=== PATIENT | female | born 1995 | race Hispanic/Latino ===

== ENCOUNTER 2021-11-15 20:17 | Emergency (ER) | payer OTHER, SELFPAY ==
[2021-11-15 20:48] LABS: #Eosinphils 0.2 10x3/uL (0.0-0.5); #Monocytes 0.5 10x3/uL (0.0-1.1); #Neutrophils 6.1 10x3/uL (1.5-8.4); %Basophils 0.3 % (0.0-2.0); %Eosinophils 1.9 % (0.0-6.0); %Lymphocytes 27.7 % (18.0-47.0); %Monocytes 5.3 % (0.0-10.0); %Neutrophils 64.6 % (40.0-75.0); Hemoglobin 14.1 g/dL (12.0-15.5); Mean Corpuscular HGB CONC 34.5 g/dL (32.0-36.0); Mean Corpuscular Hemoglobin 30.1 pg (27.0-33.0); Mean Corpuscular Volume 87.4 fl (81.6-98.3); Mean Platelet Volume 10.9 fl (7.4-10.4); Platelet Count 218 10x3/uL (150-450); Red Blood Cell (RBC) Count 4.68 10x6/uL (3.90-5.03); White Blood Cell (WBC) Count 9.5 10x3/uL (3.5-10.5)
[2021-11-15 21:00] LABS: Bilirubin Neg (Negative); Blood, Urine 50 (Negative); Clarity Clear (Clear); Glucose, Urine (Dipstick) 250 mg/dL (Negative); Ketone, Urine Negative (Negative); Leukocyte 25 (Negative); Nitrite Negative (Negative); Protein, Urine (Dipstick) Negative (Neg-Trace); Specific Gravity, Urine 1.005 (1.002-1.036); Urobilinogen Normal mg/dL (Less than 2); pH, Urine 6.5 (5.0-9.0)
[2021-11-15 21:02] LABS: ALT (SGPT) 13 U/L (8-55); AST (SGOT) 12 U/L (5-34); Albumin 4.3 g/dL (3.5-5.0); Alkaline Phosphatase 78 U/L (40-110); Anion Gap 11 mmol/L (10-20); BUN (Urea Nitrogen) 16 mg/dL (7.0-18.7); Bilirubin, Total 0.3 mg/dL (0.2-1.2); Calc. Creatinine Clearance 0 mL/min (70-130); Calcium 9.4 mg/dL (7.8-10.44); Carbon Dioxide 22 mmol/L (22-29); Chloride 103 mmol/L (98-107); Estimated GFR 103; Globulin 3.7 g/dL (2.4-3.5); Glucose 189 mg/dL (70-105); Potassium 3.8 mmol/L (3.5-5.1); Sodium 132 mmol/L (136-145)
[2021-11-15 21:14] LABS: RBC/HPF 0-3 HPF (0-3); Squamous Epithelial 0-3 HPF (0-3); WBC/HPF 0-3 HPF (0-3)
[2021-11-15 21:15] LABS: Bacteria/HPF None Seen HPF (None Seen)
== END 2021-11-15 23:00 | disposition home or self-care (01) ==
LOC: CSHERS 20:17
DX: O20.0 Threatened abortion (principal); O24.111 Pre-existing type 2 diabetes mellitus, in pregnancy, first trimester; Z3A.01 Less than 8 weeks gestation of pregnancy
CPT/HCPCS: 36415; 76856; 80053; 81003; 81015; 84702; 85025; 86900; 86901; 93976

== ENCOUNTER 2021-12-17 19:24 | Emergency (ER) | payer OTHER ==
[2021-12-17 19:56] LABS: #Eosinphils 0.2 10x3/uL (0.0-0.5); #Monocytes 0.6 10x3/uL (0.0-1.1); #Neutrophils 7.2 10x3/uL (1.5-8.4); %Basophils 0.4 % (0.0-2.0); %Eosinophils 1.7 % (0.0-6.0); %Lymphocytes 26.4 % (18.0-47.0); %Monocytes 5.2 % (0.0-10.0); %Neutrophils 65.9 % (40.0-75.0); Hemoglobin 12.8 g/dL (12.0-15.5); Mean Corpuscular HGB CONC 34.5 g/dL (32.0-36.0); Mean Corpuscular Hemoglobin 29.6 pg (27.0-33.0); Mean Corpuscular Volume 85.9 fl (81.6-98.3); Mean Platelet Volume 10.7 fl (7.4-10.4); Platelet Count 214 10x3/uL (150-450); Red Blood Cell (RBC) Count 4.32 10x6/uL (3.90-5.03); White Blood Cell (WBC) Count 10.9 10x3/uL (3.5-10.5)
== END 2021-12-17 22:21 | disposition home or self-care (01) ==
LOC: CSHERS 19:24
DX: O20.0 Threatened abortion (principal); E11.9 Type 2 diabetes mellitus without complications; Z3A.12 12 weeks gestation of pregnancy; Z79.4 Long term (current) use of insulin
CPT/HCPCS: 36415; 76856; 84702; 85025; 93976

== ENCOUNTER 2022-04-10 18:38 | Day surgery (SDC) | payer OTHER, SELFPAY ==
[2022-04-10 19:41] VITALS: BMI 40.8
[2022-04-10] MEDS ORDERED: hydrALAZINE 20 MG/ML VIAL SLOW IVP PRN (20:13)
== END 2022-04-10 20:26 | disposition home or self-care (01) ==
LOC: CSHLD/OP 18:38
PROVIDERS: ATTEND Obstetrics & Gynecology
DX: O9A.213 Injury, poisoning and certain other consequences of external causes complicating pregnancy, third trimester (principal); O99.213 Obesity complicating pregnancy, third trimester; E66.9 Obesity, unspecified; O24.414 Gestational diabetes mellitus in pregnancy, insulin controlled; R10.9 Unspecified abdominal pain; Z3A.28 28 weeks gestation of pregnancy; W01.0XXA Fall on same level from slipping, tripping and stumbling without subsequent striking against object, initial encounter; Z79.4 Long term (current) use of insulin
CPT/HCPCS: 99283

== ENCOUNTER 2022-05-07 17:15 | Day surgery (SDC) | payer SELFPAY ==
[2022-05-07 18:06] VITALS: BMI 33.8
[2022-05-07] MEDS ORDERED: hydrALAZINE 20 MG/ML VIAL SLOW IVP PRN (18:56)
[2022-05-07] MEDS ORDERED: Lactated Ringer's 1,000 ML IV SCH ×2 (19:15)
[2022-05-07 19:50] LABS: FFN Internal QC Analyzer PASS (PASS); FFN Internal QC Cassette PASS (PASS); Fetal Fibronectin Negative (Negative)
[2022-05-07 20:17] LABS: Bilirubin Neg (Negative); Blood, Urine 25 (Negative); CAUTI Indications for Culture Pregnancy; Clarity Clear (Clear); Glucose, Urine (Dipstick) Normal (Negative); Ketone, Urine Negative (Negative); Leukocyte 100 (Negative); Nitrite Negative (Negative); Protein, Urine (Dipstick) Negative (Neg-Trace); Specific Gravity, Urine 1.015 (1.005-1.030); Urobilinogen Normal mg/dL (Less than 2); pH, Urine 6.5 (5.0-9.0)
[2022-05-07 20:20] LABS: Urine Culture Reflex Yes Yes
[2022-05-07 20:26] LABS: Bacteria/HPF 2+ HPF (None Seen); RBC/HPF 0-3 HPF (0-3); Squamous Epithelial 0-3 HPF (0-3); WBC/HPF 0-3 HPF (0-3)
[2022-05-07] MEDS ORDERED: hydrOXYzine 10 MG TAB PO SCH (20:30)
[2022-05-08 11:53] LABS: Chlamydia by PCR Not Detected (NotDetected); GC by PCR Not Detected (NotDetected)
== END 2022-05-07 21:58 | disposition home or self-care (01) ==
LOC: CSHLD/OP 17:15
PROVIDERS: ATTEND Student in an Organized Health Care Education/Training Program
DX: O47.03 False labor before 37 completed weeks of gestation, third trimester (principal); O24.414 Gestational diabetes mellitus in pregnancy, insulin controlled; Z3A.32 32 weeks gestation of pregnancy
CPT/HCPCS: 81001; 82731; 87086; 87491; 87591; 87661

== ENCOUNTER 2022-05-29 21:45 | Day surgery (SDC) | payer SELFPAY ==
[2022-05-30] MEDS ORDERED: hydrALAZINE 20 MG/ML VIAL SLOW IVP PRN (00:19)
== END 2022-05-30 00:32 | disposition home or self-care (01) ==
LOC: CSHLD/OP 21:45
PROVIDERS: ATTEND Obstetrics & Gynecology
DX: O47.03 False labor before 37 completed weeks of gestation, third trimester (principal); O24.313 Unspecified pre-existing diabetes mellitus in pregnancy, third trimester; E11.9 Type 2 diabetes mellitus without complications; Z79.4 Long term (current) use of insulin; Z3A.35 35 weeks gestation of pregnancy
CPT/HCPCS: 99283

== ENCOUNTER 2022-06-22 14:06 | Inpatient (IN) | payer MEDICAID, SELFPAY ==
[2022-06-22 15:08] VITALS: BMI 49.5
[2022-06-22] MEDS ORDERED: hydrALAZINE 20 MG/ML VIAL SLOW IVP PRN (15:52)
[2022-06-22] MEDS ORDERED: Acetaminophen 500 MG TAB PO PRN (16:32)
[2022-06-22] MEDS ORDERED: Ondansetron PF 4 MG/2 ML Vial IVP PRN (16:32)
[2022-06-22] MEDS ORDERED: Promethazine HCl 25 MG/ML VIAL IM PRN (16:32)
[2022-06-22 16:33] LABS: Creatinine, Urine 101.56 mg/dL (47-110); Protein, Urine Random Quant Less than 10 mg/dL (1-14)
[2022-06-22] MEDS ORDERED: Dextrose 50% Abboject 50 ML SYRINGE SLOW IVP PRN (16:35)
[2022-06-22] MEDS ORDERED: HumaLOG 300 UNITS/3 ML VIAL SC PRN ×2 (16:35)
[2022-06-22] MEDS ORDERED: Dextrose 5% in Water 1,000 ML IV PRN (16:35)
[2022-06-22 19:44] LABS: #Eosinphils 0.1 10x3/uL (0.0-0.5); #Monocytes 0.8 10x3/uL (0.0-1.1); #Neutrophils 7.9 10x3/uL (1.5-8.4); %Basophils 0.3 % (0.0-2.0); %Eosinophils 1.2 % (0.0-6.0); %Lymphocytes 22.5 % (18.0-47.0); %Monocytes 7.1 % (0.0-10.0); %Neutrophils 68.5 % (40.0-75.0); Mean Corpuscular HGB CONC 33.2 g/dL (32.0-36.0); Mean Corpuscular Hemoglobin 28.3 pg (27.0-33.0); Mean Corpuscular Volume 85.1 fl (81.6-98.3); Mean Platelet Volume 11.8 fl (7.4-10.4); Platelet Count 180 10x3/uL (150-450); RBC Distribution Width 16.6 % (11.5-14.5); Red Blood Cell (RBC) Count 3.89 10x6/uL (3.90-5.03); White Blood Cell (WBC) Count 11.5 10x3/uL (3.5-10.5)
[2022-06-22 20:03] LABS: ALT (SGPT) 10 U/L (8-55); AST (SGOT) 10 U/L (5-34); Albumin 3.1 g/dL (3.5-5.0); Alkaline Phosphatase 156 U/L (40-110); Anion Gap 14 mmol/L (10-20); BUN (Urea Nitrogen) 10 mg/dL (7.0-18.7); Bilirubin, Total 0.2 mg/dL (0.2-1.2); Calc. Creatinine Clearance 276 mL/min (70-130); Calcium 8.2 mg/dL (7.8-10.44); Carbon Dioxide 16 mmol/L (22-29); Chloride 109 mmol/L (98-107); Estimated GFR 127; Glucose 91 mg/dL (70-105); Potassium 3.9 mmol/L (3.5-5.1); Protein, Total 6.1 g/dL (6.0-8.3); Sodium 135 mmol/L (136-145)
[2022-06-22 20:22] LABS: Syphilis Antibody Nonreactive (Nonreactive); Syphilis Antibody Index 0.11 S/CO (<1.00 Non-Reactive)
[2022-06-22 20:23] LABS: HBSAg Index 0.13 S/CO (0-0.99); Hep B Surf Ag Non-Reactive S/CO (NonReactive)
[2022-06-22] MEDS ORDERED: Lantus 1000 UNITS/10 ML VIAL SC SCH (21:00)
[2022-06-22 21:47] LABS: SARS-CoV-2 NAA Rapid Test Not Detected (NotDetected)
[2022-06-23] MEDS ORDERED: Bicitra 30 ML UDCUP PO PRN (03:16)
[2022-06-23] MEDS ORDERED: Famotidine/PF 20 mg/2ml Vial SLOW IVP PRN (03:16)
[2022-06-23] MEDS ORDERED: CEFAZOLIN 2 GM in Sodium Chloride 0.9% 100 ML IVPB SCH (03:30)
[2022-06-23] MEDS ORDERED: Phenylephrine 40 MG/NS 250 ML 250 ML ONE (04:08)
[2022-06-23] MEDS ORDERED: Oxytocin 10 UNITS/ML VIAL ONE ×2 (04:08→05:50)
[2022-06-23] MEDS ORDERED: Morphine PF 10 MG/10 ML VIAL ONE (04:08)
[2022-06-23] MEDS ORDERED: ePHEDrine Sulfate 50 MG/10 ML VIAL ONE (04:08)
[2022-06-23] MEDS ORDERED: Ketorolac Tromethamine 30 MG/ML VIAL ONE (04:08)
[2022-06-23] MEDS ORDERED: Ondansetron PF 4 MG/2 ML Vial ONE ×2 (04:08→10:37)
[2022-06-23] MEDS ORDERED: Fentanyl 100 MCG/2 ML VIAL ONE ×2 (04:08→10:11)
[2022-06-23] MEDS ORDERED: Azithromycin 500 MG VIAL ONE (05:32)
[2022-06-23] MEDS ORDERED: Promethazine HCl 25 MG/ML VIAL ONE (05:47)
[2022-06-23] MEDS ORDERED: diphenhydrAMINE 50 MG/ML VIAL IVP PRN ×2 (06:42→17:18)
[2022-06-23] MEDS ORDERED: Ondansetron HCl/PF 4 MG/2 ML Vial IVP PRN (06:42)
[2022-06-23] MEDS ORDERED: L&D-Morphine 4 MG/ML VIAL SLOW IVP PRN (06:42)
[2022-06-23] MEDS ORDERED: Promethazine HCl 25 MG SUPP PR PRN ×2 (06:42→17:18)
[2022-06-23] MEDS ORDERED: Naloxone HCl 0.4 mg/ml Vial IV PRN ×2 (06:42→17:18)
[2022-06-23] MEDS ORDERED: Naloxone HCl 0.4 mg/ml Vial IVP PRN ×4 (06:42→17:18)
[2022-06-23] MEDS ORDERED: Ondansetron PF 4 MG/2 ML Vial IVP PRN ×2 (06:42→17:18)
[2022-06-23] MEDS ORDERED: Fentanyl 100 MCG/2 ML VIAL SLOW IVP PRN (06:42)
[2022-06-23] MEDS ORDERED: Ketorolac Tromethamine 30 MG/ML VIAL IVP PRN (06:42)
[2022-06-23] MEDS ORDERED: Promethazine HCl 25 MG/ML VIAL IM PRN ×2 (06:42→17:18)
[2022-06-23] MEDS ORDERED: Moisturizing Cream (Eucerin) 113 GM JAR TOP PRN ×2 (06:42→17:18)
[2022-06-23] MEDS ORDERED: Meperidine HCl/PF 25 MG/ML VIAL SLOW IVP PRN (06:42)
[2022-06-23] MEDS ORDERED: Ketorolac Tromethamine 30 MG/ML VIAL IVP SCH (06:45)
[2022-06-23] MEDS ORDERED: Communication Order-Pharmacy FS SCH ×2 (06:45→17:30)
[2022-06-23] MEDS ORDERED: Acetaminophen 325 MG TAB PO PRN (08:38)
[2022-06-23] MEDS ORDERED: Bisacodyl 10 MG SUPP PR PRN (08:38)
[2022-06-23] MEDS ORDERED: Lanolin Ointment 7 GM TUBE TOP PRN (08:38)
[2022-06-23] MEDS ORDERED: hydrALAZINE 20 MG/ML VIAL SLOW IVP PRN (08:38)
[2022-06-23] MEDS ORDERED: HYDROcodone/Acetaminophen 5/325 mg Tablet PO PRN (08:38)
[2022-06-23] MEDS ORDERED: Simethicone Chewable 80 MG TAB PO PRN (08:38)
[2022-06-23] MEDS ORDERED: Boostrix 0.5 ML (Tdap) VIAL (>/=7 yrs of age) IM ONE (08:38)
[2022-06-23] MEDS ORDERED: Misoprostol 200 MCG TAB ONE ×3 (09:20→09:27)
[2022-06-23] MEDS ORDERED: Misoprostol 200 MCG TAB PR SCH (09:30)
[2022-06-23] MEDS ORDERED: Morphine 4 MG/ML VIAL ONE (09:30)
[2022-06-23] MEDS ORDERED: Tranexamic Acid 1,000 MG in Sodium Chloride 0.9% 250 ML 250 ML IVPB SCH (09:45)
[2022-06-23] MEDS ORDERED: Meperidine HCl/PF 25 MG/ML VIAL ONE (09:47)
[2022-06-23] MEDS ORDERED: CEFAZOLIN 1 GM VIAL ONE (09:59)
[2022-06-23] MEDS ORDERED: PROPOFOL 20 ML ONE (10:11)
[2022-06-23] MEDS ORDERED: Rocuronium Bromide 10 MG/ML (10ML VIAL) ONE (10:11)
[2022-06-23] MEDS ORDERED: Midazolam HCl 2 mg/2 ml Vial ONE (10:12)
[2022-06-23 10:35] LABS: #Monocytes 0.7 10x3/uL (0.0-1.1); #Neutrophils 13.1 10x3/uL (1.5-8.4); %Basophils 0.2 % (0.0-2.0); %Eosinophils 0.2 % (0.0-6.0); %Lymphocytes 14.4 % (18.0-47.0); %Monocytes 4.5 % (0.0-10.0); %Neutrophils 80.2 % (40.0-75.0); Hemoglobin 10.9 g/dL (12.0-15.5); Mean Corpuscular HGB CONC 33.2 g/dL (32.0-36.0); Mean Corpuscular Hemoglobin 28.3 pg (27.0-33.0); Mean Corpuscular Volume 85.2 fl (81.6-98.3); Mean Platelet Volume 11.3 fl (7.4-10.4); Platelet Count 168 10x3/uL (150-450); RBC Distribution Width 16.5 % (11.5-14.5); Red Blood Cell (RBC) Count 3.85 10x6/uL (3.90-5.03); White Blood Cell (WBC) Count 16.4 10x3/uL (3.5-10.5)
[2022-06-23] MEDS ORDERED: SUGAMMADEX SODIUM 200 MG/2 ML VIAL ONE (10:37)
[2022-06-23] MEDS ORDERED: Lidocaine 1% (PF) 30 ML VIAL ONE (10:47)
[2022-06-23 12:59] LABS: INR-International Normal Ratio 0.9; PTT 24.5 sec (22.0-33.0)
[2022-06-23] MEDS ORDERED: Lactated Ringer's 500 ML IV SCH (15:45)
[2022-06-23] MEDS: Prenatal Vitamin 1 TAB PO SCH (19:16)
[2022-06-23] MEDS: Ferrous Sulfate 325 MG TAB PO SCH ×2 (19:16→21:46)
[2022-06-23] MEDS: Docusate 100 MG CAP PO SCH ×2 (19:16→21:40)
[2022-06-23 19:33] LABS: Hemoglobin 10.5 g/dL (12.0-15.5)
[2022-06-23] MEDS: Lantus 1000 UNITS/10 ML VIAL SC SCH (21:40)
[2022-06-23] MEDS: Ketorolac Tromethamine 30 MG/ML VIAL IVP PRN (21:41)
[2022-06-24] MEDS: Ketorolac Tromethamine 30 MG/ML VIAL IVP PRN (03:58)
[2022-06-24] MEDS ORDERED: Dextrose 50% Abboject 50 ML SYRINGE SLOW IVP PRN (04:53)
[2022-06-24] MEDS ORDERED: Dextrose 5% in Water 1,000 ML IV PRN (04:53)
[2022-06-24 05:22] LABS: Hemoglobin 9.8 g/dL (12.0-15.5); Mean Corpuscular HGB CONC 33.1 g/dL (32.0-36.0); Mean Corpuscular Hemoglobin 28.3 pg (27.0-33.0); Mean Corpuscular Volume 85.5 fl (81.6-98.3); Mean Platelet Volume 10.9 fl (7.4-10.4); Platelet Count 142 10x3/uL (150-450); RBC Distribution Width 17.1 % (11.5-14.5); Red Blood Cell (RBC) Count 3.46 10x6/uL (3.90-5.03); White Blood Cell (WBC) Count 13.2 10x3/uL (3.5-10.5)
[2022-06-24] MEDS: Docusate 100 MG CAP PO SCH ×2 (09:56→21:55)
[2022-06-24] MEDS: Prenatal Vitamin 1 TAB PO SCH (09:56)
[2022-06-24] MEDS: Ferrous Sulfate 325 MG TAB PO SCH ×2 (09:56→21:55)
[2022-06-24] MEDS: HYDROcodone/Acetaminophen 5/325 mg Tablet PO PRN ×3 (09:57→20:05)
[2022-06-24] MEDS: Ibuprofen 800 MG TAB PO SCH ×2 (14:54→21:55)
[2022-06-24] MEDS: Lantus 1000 UNITS/10 ML VIAL SC SCH (21:57)
[2022-06-25] MEDS: Ibuprofen 800 MG TAB PO SCH ×3 (05:44→21:34)
[2022-06-25] MEDS ORDERED: Lantus 1000 UNITS/10 ML VIAL SC SCH ×2 (06:43→08:15)
[2022-06-25] MEDS: Ferrous Sulfate 325 MG TAB PO SCH ×2 (08:55→21:34)
[2022-06-25] MEDS: Prenatal Vitamin 1 TAB PO SCH (08:55)
[2022-06-25] MEDS: Docusate 100 MG CAP PO SCH ×2 (08:55→21:34)
[2022-06-25] MEDS: HYDROcodone/Acetaminophen 5/325 mg Tablet PO PRN ×2 (12:50→16:06)
[2022-06-26] MEDS: HYDROcodone/Acetaminophen 5/325 mg Tablet PO PRN (02:32)
[2022-06-26] MEDS: Ibuprofen 800 MG TAB PO SCH (05:42)
[2022-06-26 07:25] VITALS: BP 123/71; TEMP 98.4
[2022-06-26] MEDS: Prenatal Vitamin 1 TAB PO SCH (08:37)
[2022-06-26] MEDS: Docusate 100 MG CAP PO SCH (08:37)
[2022-06-26] MEDS: Ferrous Sulfate 325 MG TAB PO SCH (08:37)
== END 2022-06-26 10:50 | disposition home or self-care (01) | DRG 786 ==
LOC: CSHLD/OP 14:06 → CSHLD 19:00 → CSHPP 06-23 15:55
PROVIDERS: ADMIT Student in an Organized Health Care Education/Training Program; ATTEND Student in an Organized Health Care Education/Training Program
PROC: 10D00Z1 Extraction of Products of Conception, Low, Open Approach (ICD-10-PCS; principal; 2022-06-23)
PROC: 30233N1 Transfusion of Nonautologous Red Blood Cells into Peripheral Vein, Percutaneous Approach (ICD-10-PCS; 2022-06-23)
PROC: 0WJG0ZZ Inspection of Peritoneal Cavity, Open Approach (ICD-10-PCS; 2022-06-23)
DX: O36.63X0 Maternal care for excessive fetal growth, third trimester, not applicable or unspecified (principal); O24.12 Pre-existing type 2 diabetes mellitus, in childbirth; O75.4 Other complications of obstetric surgery and procedures; O99.214 Obesity complicating childbirth; R00.0 Tachycardia, unspecified; Z20.822 Contact with and (suspected) exposure to COVID-19; E66.01 Morbid (severe) obesity due to excess calories; Z3A.38 38 weeks gestation of pregnancy; Z37.0 Single live birth; Z79.4 Long term (current) use of insulin; E11.9 Type 2 diabetes mellitus without complications
CPT/HCPCS: 36415; 36416; 36430; 51702; 74018; 74176; 76700; 76819; 80053; 82010; 82570; 84156; 85025; 85027; 85379; 85384; 85610; 85730; 86780; 86850; 86900; 86901; 87340; J1815; J1885; J2175; J2250; J2270; J2274; J2405; J2550; J2590; J2704; J3010; P9016; U0002; U0003; U0005

== ENCOUNTER 2024-02-29 00:18 | Emergency (ER) | payer MEDICAID, SELFPAY ==
[2024-02-29 00:50] LABS: #Basophils 0.04 10x3/uL (0.0-0.2); #Eosinophils 0.23 10x3/uL (0.0-0.5); #Monocytes 0.56 10x3/uL (0.0-1.1); %Basophils 0.4 % (0.0-2.0); %Eosinophils 2.1 % (0.0-6.0); %Lymphocytes 35.9 % (18.0-47.0); %Monocytes 5.2 % (0.0-10.0); %Neutrophils 56.2 % (40.0-75.0); Hematocrit 36.4 % (34.9-44.5); Hemoglobin 12.2 g/dL (12.0-15.5); Mean Corpuscular HGB CONC 33.5 g/dL (32.0-36.0); Mean Corpuscular Hemoglobin 28.4 pg (27.0-33.0); Mean Corpuscular Volume 84.7 fL (81.6-98.3); Mean Platelet Volume 10.8 fL (7.4-10.4); Platelet Count 237 10x3/uL (150-450); RBC Distribution Width 15.1 % (11.5-14.5); White Blood Cell (WBC) Count 10.8 10x3/uL (3.5-10.5)
== END 2024-02-29 01:47 | disposition home or self-care (01) ==
LOC: CSHERS 00:18
DX: O20.0 Threatened abortion (principal); O24.911 Unspecified diabetes mellitus in pregnancy, first trimester; Z3A.01 Less than 8 weeks gestation of pregnancy
CPT/HCPCS: 36415; 84702; 85025; 86900; 86901; 99284